=== PATIENT | female | born 1955 | race Caucasian/White ===

== ENCOUNTER 2019-07-04 06:15 | Emergency (ER) | payer MEDICAID, MEDICARE ==
[2019-07-04] MEDS ORDERED: Lidocaine 2% w/Epinephrine 1:200K 20 ML VIAL ONE ×2 (06:43→06:47)
[2019-07-04] MEDS ORDERED: Lidocaine 1% w/Epinephrine 1:100K 20 ML VIAL ONE (06:45)
[2019-07-04] MEDS ORDERED: Lidocaine 1% 20 ML MDV ONE (06:47)
== END 2019-07-04 07:02 | disposition home or self-care (01) ==
LOC: MADERS 06:15
DX: L03.116 Cellulitis of left lower limb (principal); F32.9 Major depressive disorder, single episode, unspecified; E11.9 Type 2 diabetes mellitus without complications; E78.5 Hyperlipidemia, unspecified; E78.00 Pure hypercholesterolemia, unspecified; M19.90 Unspecified osteoarthritis, unspecified site; F17.210 Nicotine dependence, cigarettes, uncomplicated
CPT/HCPCS: 99283; J2001